=== PATIENT | male | born 1975 | race Two or more races ===

== ENCOUNTER → 2016-03-30 | Outpatient (CLI) | payer BC ==
--- NOTE | 2016-03-30 11:09 | RAD ---
Renal ultrasound, 03/30/2016: History: Urgency, incomplete voiding The right kidney measures 12.0 cm in length while the left kidney measures 10.2 cm. There is no evidence of hydronephrosis or a renal mass. The renal parenchymal echogenicity is within normal limits. No abnormal perinephric process is seen. Preliminary views of the urinary bladder demonstrates a volume of 580 cc. There is approximately 125 cc of residual urine in the bladder following voiding. Limited views of the bladder are otherwise unremarkable. IMPRESSION: 1. No significant renal abnormality is detected. 2. Moderate volume of post voiding residual urine in the bladder.
== END | disposition home or self-care (01) ==
LOC: US 08:35
PROVIDERS: ATTEND Family Medicine
DX: R31.9 Hematuria, unspecified (principal)
CPT/HCPCS: 76770